=== PATIENT | male | born 1945 | race Two or more races ===

== ENCOUNTER 2020-08-19 11:36 | Emergency (ER) | payer MEDICARE ==
[~2020-08-19] VITALS: Ht 170.2 cm; Wt 87.8 kg
--- NOTE | 2020-08-19 11:51 | NUR ---
PT C/O OF PAIN WHEN HE URINATES AND SOB AT NIGHTS AND IN MORNINGS. REPORTS SYMPTOMS STARTED ABOUT 3 DAYS AGO REPORTS SEEEING BLOOD IN URINE. DENIES CP AND HEADACHES.
[2020-08-19 12:35] LABS: BASOPHILS % (AUTO) 0 % (0-1); EOSINOPHILS % (AUTO) 1 % (1-7); LYMPHOCYTES % (AUTO) 18 % (22-44); MEAN CORPUSCULAR HEMOGLOBIN 30.4 pg (27.5-34.5); MEAN CORPUSCULAR HGB CONC 34.2 g/dL (33.2-36.2); MEAN PLATELET VOLUME 7.8 fL (7.4-10.4); MONOCYTES % (AUTO) 11 % (2-9); NEUTROPHILS % (AUTO) 69 % (42-75); PLATELET COUNT 281 x10^3/uL (130-400); RED BLOOD COUNT 4.68 x10^6/uL (4.38-5.82); RED CELL DISTRIBUTION WIDTH 13.6 % (9.4-14.8)
[2020-08-19 12:37] LABS: MD NO
--- NOTE | 2020-08-19 12:44 | NUR ---
PT RESTING IN BED. VSS. TEACHING DEEP BREATHING EXERCISE.
[2020-08-19 12:46] LABS: ANION GAP 2 mmol/L (5-15); CALCIUM 8.7 mg/dL (8.5-10.1); CHLORIDE 96 mmol/L (98-107); CREATININE 0.85 mg/dL (0.7-1.3)
[2020-08-19 12:48] LABS: MICROSCOPIC NOT IND
--- NOTE | 2020-08-19 13:23 | NUR ---
PT COMPLAINING OF DIZZINESS. WILL UPDATE MD.
--- NOTE | 2020-08-19 14:23 | NUR ---
PT UP TO BATHROOM AND BACK IN ROOM. TOLERATED WALK. CURRENTLY RESTING IN BED. URINE IS CLEAR AND YELLOW.
--- NOTE | 2020-08-19 15:23 | NUR ---
PT RESTING IN BED. VSS
--- NOTE | 2020-08-19 16:17 | NUR ---
Jose blackburn in [facility] - 08/19/20 at 1618 by [email or web address] PT OFF UNIT IN IR.
[2020-08-19 16:50] VITALS: BP 128/71
== END 2020-08-19 16:52 | disposition home or self-care (01) ==
LOC: ED 12:29
DX: R30.0 Dysuria (principal); R06.00 Dyspnea, unspecified; E87.1 Hypo-osmolality and hyponatremia; R31.9 Hematuria, unspecified; R35.0 Frequency of micturition; E78.5 Hyperlipidemia, unspecified; M19.90 Unspecified osteoarthritis, unspecified site
CPT/HCPCS: 36415; 71045; 74176; 80048; 81003; 85025; 99285